=== PATIENT | female | born 1965 | race Caucasian/White ===

== ENCOUNTER 2022-05-03 09:33 | Emergency (ER) | payer OTHER ==
[2022-05-03] MEDS ORDERED: KETOROLAC 30 MG/ML INJ ONE (10:50)
[2022-05-03] MEDS ORDERED: HYDROCODONE/APAP 5/325 MG TAB ONE (10:50)
[2022-05-03] MEDS ORDERED: CYCLOBENZAPRINE 10 MG TAB ONE (10:51)
--- NOTE | 2022-05-03 11:37 | EDPHYS ---
Physician Documentation [facility] Name: Marie Redmond Age: 57 yrs Sex: Female : 1965 Arrival Date: 05/03/2022 Time: 09:35 Bed 17 Private MD: MARIA LUISA Physician Des Martinez HPI: 05/03 10:29 This 57 yrs old Female presents to ER via Ambulatory with complaints of Back Pain, Neck pm1 Pain, Arm Pain. 10:29 The patient presents with pain that is acute. The symptoms are located in the left pm1 trapezius and left scapular area and left shoulder. Onset: The symptoms/episode began/occurred yesterday. Associated signs and symptoms: Pertinent positives: tingling to left hand with palpation of left shoulder. The problem was sustained when lifting boxes, heavy object, Patient's was moving and she lives on the second floor of an apartment complex. Modifying factors: The patient symptoms are alleviated by keeping arm still in a specific position and medications, the patient symptoms are aggravated by movement of her left arm, palpation of sore spots and hot shower. Movement of her neck. Severity of symptoms: in the emergency department the symptoms have improved. The patient has not experienced similar symptoms in the past. The patient has not recently seen a physician. 57-year-old patient presenting to the ER with complaints of back, neck, left arm pain. Patient moved to a second floor apartment, picking up boxes and unpacking. Patient reports pain improved with her daughter's hydrocodone pill yesterday, Aleve, and keeping arm in a specific position. Yesterday patient was not able to even move her left arm without any pain, pain is improved with medication she took yesterday.. 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 - Social history:: Smoking status: Patient denies any tobacco usage or history of. ROS: 10:29 Constitutional: Negative for fever, chills, and weight loss. pm1 10:29 Cardiovascular: Negative for chest pain, palpitations, and edema, Respiratory: Negative pm1 for shortness of breath, cough, wheezing, and pleuritic chest pain. 10:29 Skin: Negative for injury, rash, and discoloration, Neuro: Negative for headache, weakness, numbness, tingling, and seizure. 10:29 Neck: Positive for pain with movement, tenderness, of the left trapezius, Negative for bony tenderness. 10:29 Back: Positive for of the left trapezius pain. 10:29 MS/extremity: Positive for of the left shoulder, pain. 10:29 All other systems are negative. Exam: 10:29 Constitutional: This is a well developed, well nourished patient who is awake, alert, pm1 and in no acute distress. Head/Face: Normocephalic, atraumatic. 10:29 Skin: Warm, dry with normal turgor. Normal color with no rashes, no lesions, and no evidence of cellulitis. 10:29 Eyes: Exam is negative for acute changes, Periorbital structures: no acute changes, Extraocular movements: no acute changes, Conjunctiva: no acute changes, no injection. 10:29 Neck: External neck: tenderness, that is moderate, of the left trapezius, C-spine: vertebral tenderness, is not appreciated, ROM/movement: pain, that is mild, with rotation to the left. 10:29 Cardiovascular: Exam negative for acute changes, Rate: normal, Rhythm: regular, Pulses: no pulse deficits are appreciated. 10:29 Respiratory: Exam negative for acute changes, respiratory distress, shortness of breath. 10:29 Back: vertebral tenderness, is not appreciated, muscle spasm, is appreciated in the left trapezius and left shoulder. 10:29 Musculoskeletal/extremity: Extremities: grossly normal except: noted in the left shoulder: tenderness, pain with raising left arm above shoulder level. 10:29 Neuro: Exam negative for acute changes, Orientation: is normal, Mentation: is normal, Motor: is normal, moves all fours, Sensation: is normal, no obvious gross deficits. Vital Signs: 10:04 BP 124 / 89; Pulse 91; Resp 18; Temp 98.6; Pulse Ox 98% ; Weight 121.11 kg; Height 5 ap3 ft. 2 in. (157.48 cm); 11:43 BP 118 / 72; Pulse 80; Resp 16; Pulse Ox 100% ; jh6 12:14 BP 108 / 82; Pulse 76; Resp 17; Pulse Ox 100% ; Pain 4/10; jh6 10:04 Body Mass Index 48.83 (121.11 kg, 157.48 cm) ap3 MDM: 10:09 Patient medically screened. pm1 10:29 ED course: Patient with focal point pain to left trapezius insertion point at neck and pm1 left shoulder. Pain reproduced with movement of arm and palpation to insertion points. Pain is improved with keeping arm at a neutral position bent across her chest. Pain is muscular skeletal and will treat with NSAID, muscle relaxant and narcotic in the ER. Patient has a lidocaine patch present on her trapezius area.. 11:34 Data reviewed: vital signs. Data interpreted: Pulse oximetry: on room air is 98 %. pm1 Interpretation: normal. Medication response: Patient reports decreased pain and increased range of motion due to decreased pain. Patient is ready for discharge. 11:34 Counseling: I had a detailed discussion with the patient and/or guardian regarding: the pm1 historical points, exam findings, and any diagnostic results supporting the discharge/admit diagnosis, the need for outpatient follow up, a family practitioner, to return to the emergency department if symptoms worsen or persist or if there are any questions or concerns that arise at home. 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 pm1 05/03 10:51 Order name: Ice pack; Complete Time: 10:58 pm1 Administered Medications: 10:47 Drug: Ketorolac 60 mg Route: IM; Site: right gluteus; jh6 11:44 Follow up: Response: Pain is decreased jh6 10:47 Drug: Flexeril (cyclobenzaprine) 10 mg Route: PO; jh6 11:44 Follow up: Response: Pain is decreased jh6 10:47 Drug: HYDROcodone-acetaminophen 5 mg-325 mg 1 tabs Route: PO; jh6 11:44 Follow up: Response: Pain is decreased jh6 Disposition Summary: 05/03/22 11:36 Discharge Ordered Location: Home pm1 Problem: new pm1 Symptoms: have improved pm1 Condition: Stable pm1 Diagnosis - Strain of muscle, fascia and tendon at neck level pm1 Followup: pm1 - With: Emergency Department - When: As needed - Reason: Worsening of condition Followup: pm1 - With: Private Physician - When: 2 - 3 days - Reason: Recheck today's complaints, Continuance of care, Re-evaluation by your physician Discharge Instructions: - Discharge Summary Sheet pm1 - Muscle Strain pm1 Forms: - Work release form pm1 - Medication Reconciliation Form pm1 - Thank You Letter pm1 - Antibiotic Education pm1 - Prescription Opioid Use pm1 Prescriptions: - Cyclobenzaprine 10 mg Oral Tablet - take 1 tablet by ORAL route every 8 hours As needed; 30 tablet; Refills: 0, pm1 Product Selection Permitted - Diclofenac Sodium 75 mg Oral Tablet Sustained Release - take 1 tablet by ORAL route 2 times per day; 30 tablet; Refills: 0, Product pm1 Selection Permitted - Tylenol-Codeine #3 300 mg-30 mg Oral - take 2 tablet by ORAL route every 6 hours As needed; 20 tablet; Refills: 0, pm1 Product Selection Permitted Signatures: Marco Marcus NP STREET ROLLER ENGINEER pm1 Toña Hines RN RN ap3 Sushma Thomas RN RN jh6 Corrections: (The following items were deleted from the chart) 11:32 10:29 Modifying factors: The patient symptoms are alleviated by keeping arm still in a pm1 specific position and medications, the patient symptoms are aggravated by movement of her left arm, palpation of sore spots and hot shower pm1
--- NOTE | 2022-05-03 11:37 | ER ---
Nurse's Notes [facility] Name: Marie Redmond Age: 57 yrs Sex: Female : 1965 Arrival Date: 05/03/2022 Time: 09:35 Bed 17 Private MD: Diagnosis: Strain of muscle, fascia and tendon at neck level Presentation: 05/03 10:04 Chief complaint: Patient states: she believes she slept wrong or something the night ap3 before last because she woke up with severe neck tightness. patient states she has tried to alleviate the pain with ice, head and over the counter medication, to no relief. Patient reports the pain goes from her neck down into her shoulder and into her finger tips. Coronavirus screen: At this time, the client does not indicate any symptoms associated with coronavirus-19. Ebola Screen: No symptoms or risks identified at this time. Initial Sepsis Screen: Does the patient meet any 2 criteria? No. Patient's initial sepsis screen is negative. Does the patient have a suspected source of infection? No. Patient's initial sepsis screen is negative. Risk Assessment: Do you want to hurt yourself or someone else? Patient reports no desire to harm self or others. Onset of symptoms was May 01, 2022. 10:04 Method Of Arrival: Ambulatory ap3 10:04 Acuity: LUIS MANUEL 3 ap3 Triage Assessment: 10:08 General: Appears distressed, uncomfortable, Behavior is anxious, crying. Pain: ap3 Complains of pain in left hand, left arm and neck Pain currently is 10 out of 10 on a pain scale. Pain began 1 day ago. Neuro: Level of Consciousness is awake, alert, obeys commands, Oriented to person, place, time, situation, Speech is normal. Cardiovascular: Patient's skin is warm and dry. Respiratory: Airway is patent Respiratory effort is even, unlabored, Respiratory pattern is regular, symmetrical. Musculoskeletal: Range of motion: limited in neck, left shoulder. 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 - Social history:: Smoking status: Patient denies any tobacco usage or history of. Screenin:09 Abuse screen: Denies threats or abuse. Nutritional screening: No deficits noted. ap3 Tuberculosis screening: No symptoms or risk factors identified. 11:01 Fall Risk None identified. jh6 Assessment: 10:10 General: Appears distressed, uncomfortable, Behavior is cooperative, anxious. jh6 10:10 Pain: Complains of pain in left trapezius Pain currently is 9 out of 10 on a pain jh6 scale. Quality of pain is described as radiating, shooting, tingling, Pain began 1 day ago. Is continuous, Aggravated by increased activity, repositioning. Neuro: No deficits noted. Level of Consciousness is awake, alert, obeys commands, Oriented to person, place, time, Bakery Associate are equal bilaterally Moves all extremities. Gait is steady. Musculoskeletal: Circulation, motion, and sensation intact. Capillary refill < 3 seconds, Range of motion: limited in all extremities, limited in left shoulder Swelling Reports pain in left trapezius. 11:30 Reassessment: Patient and/or family updated on plan of care and expected duration. Pain jh6 level reassessed. Patient is alert, oriented x 3, equal unlabored respirations, skin warm/dry/pink. Patient states feeling better. Patient states symptoms have improved. 11:30 Pain: Pain currently is 4 out of 10 on a pain scale. jh6 Vital Signs: 10:04 BP 124 / 89; Pulse 91; Resp 18; Temp 98.6; Pulse Ox 98% ; Weight 121.11 kg; Height 5 ap3 ft. 2 in. (157.48 cm); 11:43 BP 118 / 72; Pulse 80; Resp 16; Pulse Ox 100% ; jh6 12:14 BP 108 / 82; Pulse 76; Resp 17; Pulse Ox 100% ; Pain 4/10; jh6 10:04 Body Mass Index 48.83 (121.11 kg, 157.48 cm) ap3 ED Course: 09:35 Patient arrived in ED. mr 09:48 Marco Marcus NP is PHCP. pm1 09:48 Des Martinez MD is Attending Physician. pm1 10:07 Triage completed. ap3 10:09 Arm band placed on left wrist. ap3 10:10 Bed in low position. Call light in reach. Side rails up X 1. 6 10:39 Sushma Thomas, RN is Primary Nurse. jh6 11:00 No provider procedures requiring assistance completed. jh6 12:14 Patient did not have IV access during this emergency room visit. jh6 Administered Medications: 10:47 Drug: Ketorolac 60 mg Route: IM; Site: right gluteus; jh6 11:44 Follow up: Response: Pain is decreased jh6 10:47 Drug: Flexeril (cyclobenzaprine) 10 mg Route: PO; jh6 11:44 Follow up: Response: Pain is decreased jh6 10:47 Drug: HYDROcodone-acetaminophen 5 mg-325 mg 1 tabs Route: PO; jh6 11:44 Follow up: Response: Pain is decreased 6 Medication: 11:01 VIS not applicable for this client. 6 Outcome: 11:36 Discharge ordered by MD. pm1 12:14 Discharged to home ambulatory. jh6 12:14 Condition: improved 12:14 Discharge instructions given to patient, Instructed on discharge instructions, follow up and referral plans. Demonstrated understanding of instructions, medications, Prescriptions given X 3. 12:24 Patient left the ED. 6 Signatures: QuezadaMonique yu mr MarcusMarco, DOCUMENTATION LIAISON DOCUMENTATION LIAISON pm1 Toña Hines RN RN 3 Sushma Thomas, RN RN 6
[2022-05-03 12:30] VITALS: TEMP 98.6
[2022-05-03 12:32] VITALS: O2SAT 100
[2022-05-03 12:35] VITALS: BP 108/82
== END 2022-05-03 12:24 | disposition home or self-care (01) ==
LOC: ER 09:33
DX: S16.1XXA Strain of muscle, fascia and tendon at neck level, initial encounter (principal); E11.9 Type 2 diabetes mellitus without complications; E03.9 Hypothyroidism, unspecified; Z88.0 Allergy status to penicillin
CPT/HCPCS: 96372; 99283